=== PATIENT | female | born 1965 | race Asian ===

== ENCOUNTER 2023-10-09 16:18 | Inpatient (IN) | payer SELFPAY ==
[~2023-10-09] VITALS: Ht 152.4 cm; Wt 59.4 kg
[2023-10-09] MEDS ORDERED: MORPHINE SULFATE 2 MG/ML CPJ (NOT FOR IM USE) IV ONE (18:30)
[2023-10-09] MEDS ORDERED: ONDANSETRON HCL 4MG/2ML INJ IV ONE (18:30)
[2023-10-09 20:24] LABS: BASOPHILS % 0.6 % (0.0-2.0); EOSINOPHILS % 0.7 % (0.0-5.0); HEMATOCRIT. 35.9 % (36.0-48.0); HEMOGLOBIN. 11.6 g/dL (12.0-16.0); LYMPHOCYTES % 15.1 % (20.0-50.0); MEAN CORPUSCULAR HEMOGLOBIN 28.1 pg (28.0-32.0); MEAN CORPUSCULAR HGB CONC 32.5 g/dL (31.0-37.0); MEAN CORPUSCULAR VOLUME 86.7 fL (81.0-99.0); MEAN PLATELET VOLUME 8.7 fl (7.4-10.4); MONOCYTES % 14.7 % (2.0-8.0); NEUTROPHILS % 68.9 % (40.0-76.0); PLATELET 286 x1000/uL (130-400); RED BLOOD CELL COUNT 4.14 mill/uL (4.2-5.4); RED CELL DISTRIBUTION WIDTH 20.9 % (11.6-14.6); WHITE BLOOD COUNT 5.7 x1000/uL (4.5-11.0)
[2023-10-09] MEDS ORDERED: ONDANSETRON HCL 4MG/2ML INJ IV NR (20:30)
[2023-10-09] MEDS ORDERED: MORPHINE SULFATE 2 MG/ML CPJ (NOT FOR IM USE) IV NR (20:30)
[2023-10-09 20:33] LABS: INR 1.4; PROTHROMBIN TIME 14.3 sec (9.6-11.0)
[2023-10-09 20:40] LABS: ALANINE AMINOTRANSFERASE 14 IU/L (10-49); ALBUMIN 4.3 g/dL (3.2-4.8); ASPARTATE AMINOTRANSFERASE 21 IU/L (<34); BILIRUBIN TOTAL 0.4 mg/dL (0.1-1.0); CALCIUM 9.4 mg/dL (8.7-10.4); CARBON DIOXIDE 27 mEq/L (21-32); CHLORIDE 108 mEq/L (98-107); CREATININE 0.7 mg/dL (0.6-1.0); GLUCOSE 128 mg/dL (70-105); POTASSIUM 4.1 mEq/L (3.5-5.1); PROTEIN TOTAL 7.5 g/dL (6.0-8.3); SODIUM 142 mEq/L (136-145); TROPONIN I HIGH SENSITIVITY 5 ng/L (3.0-34); UREA NITROGEN BLOOD 13 mg/dL (9-23)
[2023-10-09 21:54] LABS: CLARITY URINE CLOUDY (CLEAR); COLOR URINE YELLOW (YELLOW); GLUCOSE URINE NEGATIVE (NEGATIVE); KETONES URINE NEGATIVE (NEGATIVE); LEUKOCYTE ESTERASE URINE 2+ (NEGATIVE); NITRITE URINE NEGATIVE (NEGATIVE); OCCULT BLOOD URINE NEGATIVE (NEGATIVE); PH URINE 7.5 (4.5-8.0); PROTEIN URINE NEGATIVE (NEGATIVE); SPECIFIC GRAVITY URINE 1.016 (1.005-1.030); UROBILINOGEN URINE 0.2 E.U./dL (0.2-1.0)
[2023-10-09 22:14] LABS: BACTERIA URINE 2+; RBC URINE 0-2 /hpf (0-2); SQUAMOUS EPITHELIAL CELL URINE 2+ /lpf (RARE/1+)
[2023-10-09] MEDS ORDERED: ZOLPIDEM TARTRATE 5MG TABLET PO PRN (23:45)
[2023-10-09] MEDS ORDERED: GUAIFENESIN 200MG/10ML SUGAR FREE UDC PO PRN (23:45)
[2023-10-09] MEDS ORDERED: HYDROCODONE/ACETAMINOPHEN 5/325MG TABLET PO PRN (23:45)
[2023-10-09] MEDS ORDERED: ACETAMINOPHEN 325MG TABLET PO PRN ×2 (23:45)
[2023-10-09] MEDS ORDERED: NALOXONE HCL 0.4MG/ML VIAL IV PRN (23:45)
[2023-10-09] MEDS ORDERED: DOCUSATE SODIUM 100MG CAPSULE PO PRN (23:45)
[2023-10-09] MEDS ORDERED: ONDANSETRON HCL 4MG/2ML INJ IV PRN (23:45)
[2023-10-09] MEDS ORDERED: CLONIDINE 0.1MG TABLET PO PRN (23:45)
[2023-10-09] MEDS ORDERED: MAGNESIUM/ALUMINUM HYDROXIDE/SIMETHICONE 30ML UDC PO PRN (23:45)
[2023-10-09] MEDS ORDERED: IPRATROPIUM/ALBUTEROL 0.5-3(2.5)MG/3ML NEB HHN PRN (23:45)
[2023-10-10] VITALS (7 sets, daily range): BP systolic 104–148; BP diastolic 52–74; PULSE 62–79; RESP 18–19; TEMP 96.3–98.1
[2023-10-10 00:43] LABS: IRON 37 ug/dL (50-170); TOTAL IRON BINDING CAPACITY 395 ug/dl (250-425)
[2023-10-10 00:46] LABS: FERRITIN 29 ng/mL (10-291); FOLIC ACID (FOLATE) SERUM 18.65 ng/mL (>5.38); VITAMIN B12 SERUM 337 pg/mL (211-911)
[2023-10-10] MEDS: PANTOPRAZOLE 40MG DR TABLET PO SCH (06:58)
[2023-10-10 07:28] LABS: HEMOGLOBIN 10.7 g/dL (12.0-16.0); MEAN CORPUSCULAR HEMOGLOBIN 28.4 pg (28.0-32.0); MEAN CORPUSCULAR HGB CONC 32.6 g/dL (31.0-37.0); MEAN CORPUSCULAR VOLUME 87.2 fL (81.0-99.0); PLATELET 257 x1000/uL (130-400); RED BLOOD CELL COUNT 3.78 mill/uL (4.2-5.4); RED CELL DISTRIBUTION WIDTH 20.5 % (11.6-14.6); WHITE BLOOD COUNT 5.1 x1000/uL (4.5-11.0)
[2023-10-10 07:53] LABS: ALANINE AMINOTRANSFERASE 13 IU/L (10-49); ALBUMIN 3.7 g/dL (3.2-4.8); ASPARTATE AMINOTRANSFERASE 20 IU/L (<34); BILIRUBIN TOTAL 0.4 mg/dL (0.1-1.0); CALCIUM 9.2 mg/dL (8.7-10.4); CARBON DIOXIDE 25 mEq/L (21-32); CHLORIDE 108 mEq/L (98-107); CHOLESTEROL 153 mg/dL (<200); CREATINE KINASE 72 IU/L (34-145); CREATININE 0.5 mg/dL (0.6-1.0); GLUCOSE 132 mg/dL (70-105); HDL CHOLESTEROL 43 mg/dL (>65); LDL CHOLESTEROL 115 mg/dL (5-100); POTASSIUM 4.2 mEq/L (3.5-5.1); PROTEIN TOTAL 5.9 g/dL (6.0-8.3); SODIUM 141 mEq/L (136-145); TRIGLYCERIDE 152 mg/dL (0-150); UREA NITROGEN BLOOD 9 mg/dL (9-23)
[2023-10-10] MEDS: ASPIRIN 81MG TABLET PO SCH (08:18)
[2023-10-10] MEDS: ENOXAPARIN 40MG/0.4ML SYR SUBCUT SCH (08:19)
[2023-10-10] MEDS: AMLODIPINE 5MG TABLET PO SCH (08:19)
[2023-10-10] MEDS: PREGABALIN 75MG CAPSULE PO SCH (08:19)
[2023-10-10] MEDS: PREDNISOLONE 15 MG/5 ML ORAL SYRINGE PO SCH (11:30)
[2023-10-10] MEDS: KETOROLAC 15MG/ML VIAL IV PRN ×2 (12:29→22:42)
[2023-10-10] MEDS ORDERED: DEXTROSE 50% WATER 50ML SYRINGE IV PRN (18:00)
[2023-10-10] MEDS ORDERED: ATORVASTATIN CALCIUM 10MG TABLET PO SCH (21:00)
[2023-10-10] MEDS: BLOOD SUGAR DIAGNOSTIC STRIP TEST SCH (21:00)
[2023-10-10] MEDS: INSULIN LISPRO 100 UNITS/ML SUBCUT SCH (21:00)
[2023-10-10] MEDS: ATORVASTATIN CALCIUM 10MG TABLET PO SCH (22:34)
[2023-10-11] VITALS: BP 151/94; PULSE 73; RESP 18; TEMP 97.5
[2023-10-11 00:08] LABS: CREATINE KINASE 83 IU/L (34-145)
[2023-10-11] MEDS: MORPHINE SULFATE 2 MG/ML CPJ (NOT FOR IM USE) IV PRN (03:16)
[2023-10-11 04:00] VITALS: BP 108/66; PULSE 70; RESP 18; TEMP 95.4
[2023-10-11] MEDS: PANTOPRAZOLE 40MG DR TABLET PO SCH (06:25)
[2023-10-11] MEDS: BLOOD SUGAR DIAGNOSTIC STRIP TEST SCH ×4 (06:26→20:25)
[2023-10-11] MEDS: INSULIN LISPRO 100 UNITS/ML SUBCUT SCH ×4 (07:50→20:31)
[2023-10-11 08:00] VITALS: BP 130/61; PULSE 72; RESP 19; TEMP 96.7
[2023-10-11] MEDS: ASPIRIN 81MG TABLET PO SCH (08:21)
[2023-10-11] MEDS: AMLODIPINE 5MG TABLET PO SCH (08:21)
[2023-10-11] MEDS: ENOXAPARIN 40MG/0.4ML SYR SUBCUT SCH (08:22)
[2023-10-11] MEDS: PREGABALIN 75MG CAPSULE PO SCH (08:22)
[2023-10-11] MEDS: PREDNISOLONE 15 MG/5 ML ORAL SYRINGE PO SCH (09:13)
[2023-10-11 12:00] VITALS: BP 152/71; PULSE 93; RESP 18; TEMP 96.7
[2023-10-11] MEDS: DEXAMETHASONE 4MG/ML 1ML VIAL IV SCH ×3 (12:05→23:08)
[2023-10-11 16:00] VITALS: BP 120/96; PULSE 93; RESP 19; TEMP 98.1
[2023-10-11 20:00] VITALS: BP 120/60; PULSE 79; RESP 19; TEMP 98.4
[2023-10-11] MEDS: ATORVASTATIN CALCIUM 10MG TABLET PO SCH (20:26)
[2023-10-12] VITALS: BP 129/63; PULSE 79; RESP 19; TEMP 97.9
[2023-10-12 04:00] VITALS: BP 126/65; PULSE 76; RESP 19; TEMP 97.6
[2023-10-12] MEDS: DEXAMETHASONE 4MG/ML 1ML VIAL IV SCH (06:13)
[2023-10-12] MEDS: BLOOD SUGAR DIAGNOSTIC STRIP TEST SCH (06:20)
[2023-10-12] MEDS: MORPHINE SULFATE 2 MG/ML CPJ (NOT FOR IM USE) IV PRN (06:55)
[2023-10-12] MEDS ORDERED: FAMOTIDINE 20MG TABLET PO SCH (07:20)
[2023-10-12 08:00] VITALS: BP 152/71; PULSE 72; RESP 20; TEMP 96.9
[2023-10-12] MEDS: PREGABALIN 75MG CAPSULE PO SCH (08:33)
[2023-10-12] MEDS: AMLODIPINE 5MG TABLET PO SCH (08:36)
[2023-10-12] MEDS: ASPIRIN 81MG TABLET PO SCH (08:36)
[2023-10-12] MEDS: ENOXAPARIN 40MG/0.4ML SYR SUBCUT SCH (08:37)
[2023-10-12 10:35] VITALS: BP 133/87; PULSE 87; TEMP 98.8; O2SAT 98
[2023-10-12 12:00] VITALS: BP 112/61; PULSE 83; RESP 20; TEMP 96.9
== END 2023-10-12 13:54 | disposition home or self-care (01) | DRG 347 ==
LOC: ER 16:18 → MICUSO 22:24 → EDBEDREQ 22:27 → 6EST 10-10 00:16
PROVIDERS: ADMIT Internal Medicine; ATTEND Internal Medicine
DX: M51.26 Other intervertebral disc displacement, lumbar region (principal); D64.9 Anemia, unspecified; M06.9 Rheumatoid arthritis, unspecified; I10 Essential (primary) hypertension; E78.5 Hyperlipidemia, unspecified; E78.00 Pure hypercholesterolemia, unspecified; M51.37 Other intervertebral disc degeneration, lumbosacral region; M48.061 Spinal stenosis, lumbar region without neurogenic claudication; R73.03 Prediabetes; J45.909 Unspecified asthma, uncomplicated; Z79.899 Other long term (current) drug therapy; Z79.82 Long term (current) use of aspirin; Z79.60 Long term (current) use of unspecified immunomodulators and immunosuppressants
CPT/HCPCS: 36415; 71045; 72131; 72148; 74176; 80053; 80061; 81003; 82270; 82550; 82607; 82728; 82746; 82962; 83036; 83540; 83550; 84484; 85025; 85027; 93970; 97162; 99285; J1100; J1650; J1815; J1885; J2270; J2405